=== PATIENT | female | born 1960 | race Caucasian/White ===

== ENCOUNTER 2016-11-08 14:49 | Emergency (ER) | payer OTHER ==
[2016-11-08 14:58] VITALS: BP 142/81
--- NOTE | 2016-11-08 15:18 | EDM.PDOC ---
ED HPI GENERAL MEDICAL PROBLEM - General Chief Complaint: Upper Extremity Injury/Pain Stated Complaint: LEFT ARM INJURY Time Seen by Provider: 11/08/16 15:10 Source of Information: Reports: Patient History Limitations: Reports: No Limitations - History of Present Illness INITIAL COMMENTS - FREE TEXT/NARRATIVE: 56-year-old female presents for evaluation injury to left arm. Patient reports that she was cleaning a shower at work. Reports that she slipped and fell. States that she attempted to grab a shower bar but the bar gave way. She states that her left arm went up and around her. She reports hearing a pop. She is having pain to the left proximal humerus. No numbness or tingling. No obvious deformity, open wounds or bruising. Patient is right handed. No head trauma. No syncope headaches, nausea or vomiting. Onset: Today Location: Reports: Upper Extremity, Left Left Upper Arm Pain Score (Numeric/FACES): 10 - Related Data Allergies Allergy/AdvReac Type Severity Reaction Status Date / Time latex Allergy Rash Verified 10/23/15 15:50 Penicillins Allergy Airway Verified 10/23/15 15:50 Tightness plastic Allergy Rash Uncoded 10/23/15 15:50 Past Medical History HEENT History: Reports: Impaired Vision Other HEENT History: wears eyeglasses to read. Cardiovascular History: Reports: Heart Murmur, Hypertension Other Cardiovascular History: states was on Atenolol short term for HTN, states has anxiety when going to clinics. Respiratory History: Reports: Asthma, Pneumonia, Recurrent Gastrointestinal History: Reports: GERD Musculoskeletal History: Reports: Back Pain, Chronic, Fracture Psychiatric History: Reports: Anxiety - Infectious Disease History Infectious Disease History: Reports: Shingles - Past Surgical History HEENT Surgical History: Reports: Tonsillectomy Social & Family History - Tobacco Use Smoking Status *Q: Former Smoker Years of Tobacco use: 10 Used Tobacco, but Quit: Yes Month Tobacco Last Used: 6 yr Second Hand Smoke Exposure: No - Caffeine Use Caffeine Use: Reports: Coffee - Alcohol Use Days Per Week of Alcohol Use: 3 Number of Drinks Per Day: 1 Total Drinks Per Week: 3 - Recreational Drug Use Recreational Drug Use: No Review of Systems - Review of Systems Review Of Systems: See Below GI/Abdominal: Denies: Nausea, Vomiting Musculoskeletal: Reports: Arm Pain (left) Skin: Denies: Bruising, Wound Neurological: Denies: Headache, Syncope ED EXAM, GENERAL - Physical Exam Exam: See Below Exam Limited By: No Limitations General Appearance: Alert, WD/WN, No Apparent Distress Respiratory/Chest: No Respiratory Distress Cardiovascular: Normal Peripheral Pulses, Regular Rate, Rhythm Extremities: Normal Inspection, Normal Capillary Refill, Limited Range of Motion (left shoudler and arm ROM testing deferred due to pain), Other ( tenderness to the left mid to proximal humerus; no obvious deformity; no pain to palpation of the left shoulder, AC joint, scapula, clavicle or elbow) Neurological: Alert, Oriented, Normal Cognition Psychiatric: Normal Affect, Normal Mood Skin Exam: Warm, Dry, Normal Color Course - Vital Signs Last Recorded V/S: Last Vital Signs Temp 36.3 C 11/08/16 14:57 Pulse 87 11/08/16 14:57 Resp 20 11/08/16 14:57 BP 142/81 H 11/08/16 14:57 Pulse Ox 94 L 11/08/16 14:57 - Radiology Interpretation Free Text/Narrative:: xray of the left humerus shows no acute fractures or dislocations. - Re-Assessments/Exams Free Text/Narrative Re-Assessment/Exam: 11/08/16 16:30 I reviewed the x-ray results with the patient. Given her mechanism of injury and hearing a pop I am concerned that she tore her rotator cuff. I will have her follow-up with orthopedics. Hopefully once her pain has subsided some a more thorough physical exam of the left shoulder can be performed. I did educate her that she may require an MRI for further evaluation. I will have follow-up with Dr. Disla she has seen him in the past. I will place her in a shoulder sling. Discharge instructions as documented. Departure - Departure Time of Disposition: 16:30 Disposition: Home, Self-Care 01 Condition: Fair Clinical Impression: Shoulder injury - Discharge Information Instructions: Shoulder Pain, [id number] Referrals: Fanny Garner PA-C [Primary Care Provider] - Bam Disla MD [Physician] - Forms: ED Department Discharge Additional Instructions: [id number] Tylenol or Motrin as needed for pain. Shoulder sling on at all times. Ice the shoulder for 5 times a day for 15-20 minutes. Follow-up with orthopedics within [address] Disla. Please call to schedule with Dr. Disla. Please return to the ER if your symptoms change or worsen.
--- NOTE | 2016-11-08 17:40 | CR ---
Left humerus: Two views of the left humerus were obtained. No fracture or other abnormality is seen. Impression: 1. No abnormality is identified on two-view left humerus study. Diagnostic code #1
== END 2016-11-08 16:40 | disposition home or self-care (01) ==
LOC: JD.ED 14:49
DX: S49.92XA Unspecified injury of left shoulder and upper arm, initial encounter (principal); I10 Essential (primary) hypertension; J45.909 Unspecified asthma, uncomplicated; K21.9 Gastro-esophageal reflux disease without esophagitis; F41.9 Anxiety disorder, unspecified; Z88.0 Allergy status to penicillin; Z91.040 Latex allergy status; Z91.048 Other nonmedicinal substance allergy status; Z87.891 Personal history of nicotine dependence; Z98.890 Other specified postprocedural states; Z87.01 Personal history of pneumonia (recurrent); W01.0XXA Fall on same level from slipping, tripping and stumbling without subsequent striking against object, initial encounter; Y99.0 Civilian activity done for income or pay
CPT/HCPCS: 73060-26-LT; 73060-LT; 99283

== ENCOUNTER 2018-04-29 08:14 | Emergency (ER) | payer OTHER ==
[2018-04-29 08:37] VITALS: BP 148/88
[2018-04-29] MEDS ORDERED: Acetaminophen 325 MG Tab PO ONE (08:47)
--- NOTE | 2018-04-29 09:43 | CR ---
Right shoulder: Three views of the right shoulder were obtained. Comparison: No previous shoulder study. Acromioclavicular and glenohumeral joints appear within normal limits. No fracture, dislocation or other bony abnormality is identified. Impression: 1. No abnormality is appreciated on right shoulder study. Diagnostic code #1
--- NOTE | 2018-04-29 09:43 | CR ---
Right knee: Four views of the right knee were obtained. Comparison: Prior right knee exam of 07/24/16. Very minimal joint effusion is seen. Medial and lateral joint compartments are maintained in height. No fracture or other bony abnormality is identified. Impression: 1. Minimal joint effusion. 2. Right knee study is otherwise unremarkable. No significant change is seen from previous study. Diagnostic code #2
--- NOTE | 2018-04-29 10:15 | EDM.PDOC ---
ED HPI GENERAL MEDICAL PROBLEM - General Chief Complaint: Lower Extremity Injury/Pain Stated Complaint: RT KNEE,ARM,SHOULDER INJURY Time Seen by Provider: 04/29/18 08:35 Source of Information: Reports: Patient, RN Notes Reviewed - History of Present Illness INITIAL COMMENTS - FREE TEXT/NARRATIVE: 57-year-old lady slipped on her deck last evening down on her right knee and then also suffering hyperflexion injury to the right knee. Injured her right shoulder. Morning she still has quite severe knee pain but also does have moderate shoulder pain worse with motion. Right Knee Pain Score (Numeric/FACES): 10 - Related Data Allergies Allergy/AdvReac Type Severity Reaction Status Date / Time latex Allergy Rash Verified 04/29/18 08:31 Penicillins Allergy Airway Verified 04/29/18 08:31 Tightness plastic Allergy Rash Uncoded 10/23/15 15:50 Home Meds: Home Meds Biotin 5,000 mcg PO DAILY 04/29/18 [History] Doxycycline [Vibramycin] 25 mg PO BID 04/29/18 [History] Magnesium Citrate 200 mg PO DAILY 04/29/18 [History] Past Medical History HEENT History: Reports: Impaired Vision Other HEENT History: wears eyeglasses to read. Cardiovascular History: Reports: Heart Murmur, Hypertension Other Cardiovascular History: states was on Atenolol short term for HTN, states has anxiety when going to clinics. Respiratory History: Reports: Asthma, Pneumonia, Recurrent Gastrointestinal History: Reports: GERD Musculoskeletal History: Reports: Back Pain, Chronic, Fracture Psychiatric History: Reports: Anxiety - Infectious Disease History Infectious Disease History: Reports: Shingles - Past Surgical History HEENT Surgical History: Reports: Tonsillectomy Social & Family History - Tobacco Use Smoking Status *Q: Former Smoker Used Tobacco, but Quit: Yes Month/Year Tobacco Last Used: 2010 - Caffeine Use Caffeine Use: Reports: Coffee - Recreational Drug Use Drug Use in Last 12 Months: No Review of Systems - Review of Systems Review Of Systems: See Below Eyes: Reports: No Symptoms Ears: Denies: Bloody Discharge Nose: Reports: No Symptoms Mouth/Throat: Reports: No Symptoms Respiratory: Denies: Shortness of Breath, Pleuritic Chest Pain Cardiovascular: Denies: Chest Pain GI/Abdominal: Denies: Abdominal Pain, Nausea, Vomiting Musculoskeletal: Reports: Shoulder Pain, Joint Pain (Knee pain) Neurological: Denies: Headache, Numbness, Tingling, Trouble Speaking, Weakness ED EXAM, GENERAL - Physical Exam Exam: See Below General Appearance: Alert, Moderate Distress Eye Exam: Bilateral Eye: PERRL Ears: Normal External Exam Nose: Normal Inspection Throat/Mouth: Normal Inspection Head: Atraumatic Neck: Supple, Non-Tender Respiratory/Chest: No Respiratory Distress, Lungs Clear, Normal Breath Sounds Cardiovascular: Regular Rate, Rhythm Extremities: Joint Swelling (There is mild swelling of the right knee, diffuse tenderness, there is pain with motion, joint is stable.), Other (There is tenderness of the anterior and lateral shoulder, no swelling or visible deformity) Neurological: Alert, Oriented, No Motor/Sensory Deficits Skin Exam: Warm, Dry, Normal Color Course - Vital Signs Last Recorded V/S: Last Vital Signs Temp 98.4 F 04/29/18 08:32 Pulse 71 04/29/18 08:32 Resp 13 04/29/18 08:32 BP 148/88 H 04/29/18 08:32 Pulse Ox 100 04/29/18 08:32 - Orders/Labs/Meds Meds: Medications Discontinued Medications Generic Name Dose Route Start Last Admin Trade Name Autumn PRN Reason Stop Dose Admin Acetaminophen 975 mg 04/29/18 08:47 04/29/18 08:55 Tylenol PO 04/29/18 08:48 975 mg NOW ONE Administration - Re-Assessments/Exams Free Text/Narrative Re-Assessment/Exam: 04/29/18 16:57 X-rays of shoulder and knee are negative for fracture 04/29/18 17:01. Treated with knee immobilizer, she does have crutches at home. Departure - Departure Time of Disposition: 10:15 Disposition: Home, Self-Care 01 Condition: Fair Clinical Impression: Fall Qualifiers: Encounter type: initial encounter Qualified Code(s): W19.XXXA - Unspecified fall, initial encounter Right knee sprain Qualifiers: Encounter type: initial encounter Involved ligament of knee: unspecified ligament Qualified Code(s): S83.91XA - Sprain of unspecified site of right knee , initial encounter Shoulder contusion Qualifiers: Encounter type: initial encounter Laterality: right Qualified Code(s): S40.011A - Contusion of right shoulder, initial encounter - Discharge Information Instructions: Fall Prevention in the Home, [id number], Knee Sprain, Adult Referrals: Fanny Garner PA-C [Primary Care Provider] - Forms: ED Department Discharge Additional Instructions: Knee immobilizer, ice packs and elevation, use crutches, try keep nonweightbearing as much as possible. Continue Aleve, take 2 tabs twice daily with food which will help for pain and inflammation. You may take Tylenol up to 3 times daily in addition for extra pain relief. Follow up with Fanny at the clinic in about 3 days for recheck, call for appointment. If symptoms not improving MRI may be indicated, physical therapy also would be helpful.
== END 2018-04-29 10:46 | disposition home or self-care (01) ==
LOC: JD.ED 08:14
DX: S83.91XA Sprain of unspecified site of right knee, initial encounter (principal); S40.011A Contusion of right shoulder, initial encounter; I10 Essential (primary) hypertension; Z87.01 Personal history of pneumonia (recurrent); Z98.890 Other specified postprocedural states; Z88.0 Allergy status to penicillin; Z91.040 Latex allergy status; Z87.891 Personal history of nicotine dependence; W00.0XXA Fall on same level due to ice and snow, initial encounter
CPT/HCPCS: 73030; 73564; 99283; A9270; 99282

== ENCOUNTER 2019-04-15 10:22 | Emergency (ER) | payer OTHER ==
[2019-04-15 10:45] VITALS: BP 144/90; PULSE 76
[2019-04-15] MEDS ORDERED: Alum Hydrox/Mag Hydrox/Simeth 30 ML, Lidocaine 2% 15 ML PO ONE ×2 (11:41)
--- NOTE | 2019-04-15 11:45 | EDM.PDOC ---
ED HPI GENERAL MEDICAL PROBLEM - General Chief Complaint: Abdominal Pain Stated Complaint: PAIN IN LEFT SIDE Time Seen by Provider: 04/15/19 11:26 Source of Information: Reports: Patient History Limitations: Reports: No Limitations - History of Present Illness INITIAL COMMENTS - FREE TEXT/NARRATIVE: Patient is a 58-year-old female who presents with complaints of left upper quadrant abdominal pain that started around 1:00 in the morning on Sunday. Patient states that she ate [place] food on Sunday evening and she feels that this may be contributing to her pain. She describes the pain as sharp. The pain is not present when she is holding still, however it is tender to palpation , with movement, or with deep breathing. She does have a history of fairly significant acid reflux, however she is not on a daily PPI. States that she uses Maalox as needed. She also has a history with recurrent constipation. States that a couple days ago she had a bowel movement which was "a couple andrey ", however she has taken Maalox in a couple occasions and did have a normal soft bowel movement today. This did not affect her pain. Patient has had an EGD done by Dr. Plascencia approximately 5 years ago which was normal. She does not take a daily stool softener. She denies any nausea, vomiting, or diarrhea associated with this pain. Left Upper Abdomen Pain Score (Numeric/FACES): 8 - Related Data Allergies Allergy/AdvReac Type Severity Reaction Status Date / Time latex Allergy Rash Verified 04/15/19 10:45 Penicillins Allergy Airway Verified 04/15/19 10:45 Tightness plastic Allergy Rash Uncoded 10/23/15 15:50 Home Meds: Home Meds Biotin 5,000 mcg PO DAILY 04/29/18 [History] Doxycycline [Vibramycin] 25 mg PO BID 04/29/18 [History] metroNIDAZOLE [Metronidazole] 04/15/19 [History] Past Medical History HEENT History: Reports: Impaired Vision Other HEENT History: wears eyeglasses to read. Cardiovascular History: Reports: Heart Murmur, Hypertension Other Cardiovascular History: states was on Atenolol short term for HTN, states has anxiety when going to clinics. Respiratory History: Reports: Asthma, Pneumonia, Recurrent Gastrointestinal History: Reports: GERD Musculoskeletal History: Reports: Back Pain, Chronic, Fracture Psychiatric History: Reports: Anxiety - Infectious Disease History Infectious Disease History: Reports: Shingles - Past Surgical History HEENT Surgical History: Reports: Tonsillectomy Social & Family History - Tobacco Use Smoking Status *Q: Former Smoker Used Tobacco, but Quit: Yes Month/Year Tobacco Last Used: 2010 - Caffeine Use Caffeine Use: Reports: Coffee, Tea - Recreational Drug Use Recreational Drug Use: No ED ROS GENERAL - Review of Systems Review Of Systems: Comprehensive ROS is negative, except as noted in HPI. ED EXAM, GI/ABD - Physical Exam Exam: See Below Exam Limited By: No Limitations General Appearance: Alert, WD/WN, No Apparent Distress Respiratory/Chest: No Respiratory Distress, Lungs Clear, Normal Breath Sounds, No Accessory Muscle Use, Chest Non-Tender Cardiovascular: Normal Peripheral Pulses, Regular Rate, Rhythm, No Edema, No Gallop, No JVD, No Murmur, No Rub GI/Abdominal Exam: Normal Bowel Sounds, Soft, No Organomegaly, No Distention, No Abnormal Bruit, No Mass, Pelvis Stable, Tender (Left upper quadrant tenderness) Extremities: Normal Inspection, Normal Range of Motion, Non-Tender, Normal Capillary Refill, No Pedal Edema Neurological: Alert, Oriented, CN II-XII Intact, Normal Cognition, Normal Gait, Normal Reflexes, No Motor/Sensory Deficits Psychiatric: Normal Affect, Normal Mood Skin Exam: Warm, Dry, Intact, Normal Color, No Rash Course - Vital Signs Last Recorded V/S: Last Vital Signs Temp 98.2 F 04/15/19 10:41 Pulse 76 04/15/19 10:41 Resp 18 04/15/19 10:41 BP 144/90 H 04/15/19 10:41 Pulse Ox 95 04/15/19 10:41 - Orders/Labs/Meds Labs: Laboratory Tests 04/15/19 04/15/19 04/15/19 Range/Units 11:55 11:55 12:34 WBC 6.04 (3.98-10.04) K/mm3 RBC 4.96 (3.98-5.22) M/mm3 Hgb 14.6 (11.2-15.7) gm/dl Hct 43.4 (34.1-44.9) % MCV 87.5 (79.4-94.8) fl MCH 29.4 (25.6-32.2) pg MCHC 33.6 (32.2-35.5) g/dl RDW Std Deviation 37.6 (36.4-46.3) fL Plt Count 329 (182-369) K/mm3 MPV 9.6 (9.4-12.3) fl Neut % (Auto) 56.8 (34.0-71.1) % Lymph % (Auto) 30.1 (19.3-51.7) % [place] % (Auto) 9.8 (4.7-12.5) % Eos % (Auto) 2.3 (0.7-5.8) Baso % (Auto) 0.8 (0.1-1.2) % Neut # (Auto) 3.43 (1.56-6.13) K/mm3 Lymph # (Auto) 1.82 (1.18-3.74) K/mm3 [place] # (Auto) 0.59 H (0.24-0.36) K/mm3 Eos # (Auto) 0.14 (0.04-0.36) K/mm3 Baso # (Auto) 0.05 (0.01-0.08) K/mm3 Sodium 139 (136-145) mEq/L Potassium 4.3 (3.5-5.1) mEq/L Chloride 103 (98-107) mEq/L Carbon Dioxide 28 (21-32) mEq/L Anion Gap 12.3 (5-15) BUN 17 (7-18) mg/dL Creatinine 0.8 (0.55-1.02) mg/dL Est Cr Clr Drug Dosing 57.84 mL/min Estimated GFR (MDRD) > 60 (>60) mL/min BUN/Creatinine Ratio 21.3 H (14-18) Glucose 100 (74-106) mg/dL Calcium 9.4 (8.5-10.1) mg/dL Total Bilirubin 0.6 (0.2-1.0) mg/dL AST 25 (15-37) U/L ALT 40 (14-59) U/L Alkaline Phosphatase 91 (46-116) U/L C-Reactive Protein 1.4 H* (<1.0) mg/dL Total Protein 7.5 (6.4-8.2) g/dl Albumin 3.6 (3.4-5.0) g/dl Globulin 3.9 gm/dL Albumin/Globulin Ratio 0.9 L (1-2) Lipase 123 (73-393) U/L Urine Color Light yellow (Yellow) Urine Appearance Clear (Clear) Urine pH 6.5 (5.0-8.0) Ur Specific [place] 1.020 (1.005-1.030) Urine Protein Negative (Negative) Urine Glucose (UA) Negative (Negative) Urine Ketones Negative (Negative) Urine Occult Blood Trace-lysed H (Negative) Urine Nitrite Negative (Negative) Urine Bilirubin Negative (Negative) Urine Urobilinogen 0.2 (0.2-1.0) Ur Leukocyte Esterase Negative (Negative) Urine RBC 0-5 (0-5) /hpf Urine WBC 0-5 (0-5) /hpf Ur Squamous Epith Cells 0-5 (0-5) /hpf Urine Bacteria Not seen (FEW) /hpf Urine Mucus Not seen (FEW) /hpf Meds: Medications Discontinued Medications Generic Name Dose Route Start Last Admin Trade Name Freq PRN Reason Stop Dose Admin Al Hydroxide/Mg Hydroxide 30 0 ml 04/15/19 11:41 04/15/19 12:31 ml/ Lidocaine HCl 15 ml PO 04/15/19 11:42 45 ml ONETIME ONE Administration Magnesium Citrate 296 ml 04/15/19 12:57 04/15/19 13:07 Citrate Of Magnesia PO 04/15/19 12:58 296 ml ONETIME ONE Administration - Re-Assessments/Exams Free Text/Narrative Re-Assessment/Exam: 04/15/19 12:55 Hematology was grossly unremarkable with the exception of a very mildly elevated CRP at 1.4. Urinalysis was negative for any infection. Abdomen x-ray does show a significant amount of stool throughout the rectal vault, descending colon, splenic flexure, and across the transverse colon. Discussed these findings with the patient. We will send her home with a bottle of magnesium citrate. Also recommended that she start taking a daily stool stool softener such as Colace. Discharge instructions as documented. Departure - Departure Time of Disposition: 12:56 Disposition: Home, Self-Care 01 Condition: Good Clinical Impression: Abdominal pain Qualifiers: Abdominal location: left upper quadrant Qualified Code(s): R10.12 - Left upper quadrant pain - Discharge Information *PRESCRIPTION DRUG MONITORING PROGRAM REVIEWED*: No *COPY OF PRESCRIPTION DRUG MONITORING REPORT IN PATIENT HANS: No Instructions: Abdominal Pain, Adult, Constipation, Adult, [id number] Referrals: Fanny Garner PA-C [Primary Care Provider] - Forms: ED Department Discharge Additional Instructions: You were seen in the emergency department today for left upper quadrant abdominal pain that started yesterday and worsened and today. Your work-up included blood work, urinalysis, as well as an x-ray of your abdomen. Your blood work and urinalysis were normal. X-ray of your abdomen did show a significant amount of stool in the left side of your colon which is likely the cause of the pain you are having. You have been sent home with a bottle of magnesium citrate. Drink this when you get home. This should produce a number of bowel movements some of which may be loose. Recommend that you begin taking a daily stool softener such as Colace. For time that you find that you have acute constipation, you may use [id number] magnesium citrate or MiraLAX as needed. If you should experience any worsening symptoms of concern, please do not hesitate to return to the emergency department. Sepsis Event Note - Evaluation Sepsis Screening Result: No Definite Risk - Focused Exam Date Exam was Performed: 04/16/19 Time Exam was Performed: 01:08
[2019-04-15] MEDS ORDERED: Magnesium Citrate Solution 296 ML Bottle PO ONE (12:57)
--- NOTE | 2019-04-15 13:32 | CR ---
Abdomen: Supine and upright views of the abdomen were obtained. Comparison: No previous study. Slight increased stool is seen throughout the colon. Slight degenerative change is scattered within the spine with mild scoliosis. No free air is seen. Calcifications are noted within the pelvis having the appearance of phleboliths. No discrete soft tissue abnormality is appreciated. Impression: 1. Findings as noted above. 2. Nothing acute is appreciated on two-view abdominal x-ray. Diagnostic code #2 This report was dictated in [place] Standard Time
== END 2019-04-15 13:15 | disposition home or self-care (01) ==
LOC: JD.ED 10:22
DX: R10.12 Left upper quadrant pain (principal); I10 Essential (primary) hypertension; J45.909 Unspecified asthma, uncomplicated; Z79.899 Other long term (current) drug therapy; Z87.891 Personal history of nicotine dependence; Z91.040 Latex allergy status; Z88.0 Allergy status to penicillin
CPT/HCPCS: 36415; 74019; 80053; 81001; 83690; 85025; 86140; 99284; A9270; 99283

== ENCOUNTER 2019-12-12 17:00 | Emergency (ER) | payer OTHER ==
[2019-12-12] MEDS ORDERED: Ondansetron 4 MG/2 ML SDV IVPUSH ONE (17:57)
[2019-12-12] MEDS ORDERED: Sodium Chloride 0.9% 1,000 ML IV SCH (18:00)
--- NOTE | 2019-12-12 18:07 | EDM.PDOC ---
ED HPI GENERAL MEDICAL PROBLEM - General Chief Complaint: Abdominal Pain Stated Complaint: LOWER ABD PAIN AND BACK PAIN Time Seen by Provider: 12/12/19 17:37 Source of Information: Reports: Patient, RN Notes Reviewed History Limitations: Reports: No Limitations - History of Present Illness INITIAL COMMENTS - FREE TEXT/NARRATIVE: Patient is a 59-year-old female who presents to the ED for the evaluation of her ongoing lower abdomen pain. She notes that she has been having issues with this for about the last week, she has been seen by 2 midlevel's and one doctor at the walk-in clinic, and has not had much done per her history. She states that she has a issue with constipation, but she has had some bowel movements over the last week, they have been very hard and small to her reports. She did note today that her urine seemed to be pink-tinged, and would like her urine tested, she states no one has done this, they have only done blood work and no imaging or other modalities. Patient notes that she recently lost her in October as well, and has had some depression about this, but she does not want to take anything for medication and states that she has tried talking to someone, but is not helped. Patient notes that the abdomen pain seems to worsen when she sits up straight, and has noted it is fairly constant. She is also noted a relative weight loss of roughly 20 pounds in the last few months as well. She has been using Mylanta for her constipation issues. She states she has had the chills but no fever, she denies any diarrhea, but is complaining of nausea but no vomiting. She is tried 1 enema, with no results. She does note that Dr. Rojas at the walk-in clinic put her on Linzess for her bowel issues, patient states she took 1 dose of this last night, and notes that it did not go well with her, so she does not want to take this anymore. Treatments OCCUPATIONAL MEDICINE SPECIALIST: Reports: Other (see below) Other Treatments OCCUPATIONAL MEDICINE SPECIALIST: none Left Back Pain Score (Numeric/FACES): 8 Bilateral Lower Abdomen Pain Score (Numeric/FACES): 8 - Related Data Allergies Allergy/AdvReac Type Severity Reaction Status Date / Time latex Allergy Severe Rash Verified 12/12/19 17:43 Penicillins Allergy Severe Airway Verified 12/12/19 17:43 Tightness plastic Allergy Severe Rash Uncoded 12/12/19 17:43 Home Meds: Home Meds Dicyclomine [Bentyl] 10 mg PO TID #21 cap 12/12/19 [Rx] Doxycycline [Vibramycin] 100 mg PO BID 7 Days #14 tab 12/12/19 [Rx] Past Medical History HEENT History: Reports: Impaired Vision Other HEENT History: wears eyeglasses to read. Cardiovascular History: Reports: Heart Murmur, Hypertension Other Cardiovascular History: states was on Atenolol short term for HTN, states has anxiety when going to clinics. Respiratory History: Reports: Asthma, Pneumonia, Recurrent Gastrointestinal History: Reports: GERD Musculoskeletal History: Reports: Back Pain, Chronic, Fracture Psychiatric History: Reports: Anxiety - Infectious Disease History Infectious Disease History: Reports: Shingles - Past Surgical History HEENT Surgical History: Reports: Tonsillectomy Social & Family History - Tobacco Use Tobacco Use Status *Q: Former Tobacco User Used Tobacco, but Quit: Yes Month/Year Tobacco Last Used: 2010 - Caffeine Use Caffeine Use: Reports: Coffee, Tea - Recreational Drug Use Recreational Drug Use: No ED ROS GENERAL - Review of Systems Review Of Systems: Comprehensive ROS is negative, except as noted in HPI. ED EXAM, GI/ABD - Physical Exam Exam: See Below Exam Limited By: No Limitations General Appearance: Alert, WD/WN, No Apparent Distress, Anxious (pt is mildly tearful when talking about her , but is consolable) Respiratory/Chest: No Respiratory Distress, Lungs Clear, Normal Breath Sounds, No Accessory Muscle Use, Chest Non-Tender Cardiovascular: Normal Peripheral Pulses, Regular Rate, Rhythm, No Murmur GI/Abdominal Exam: Normal Bowel Sounds, Soft, No Distention, No Mass, Tender (suprapubic tenderness) (Female) Exam: Deferred (pt denies vaginal bleeding/discharge other concerns) Extremities: Normal Inspection, Normal Capillary Refill Neurological: Alert, Oriented, Normal Cognition, No Motor/Sensory Deficits Psychiatric: Normal Affect, Normal Mood, Anxious (mildy, but consolable) Skin Exam: Warm, Dry, Intact, Normal Color, No Rash Course - Vital Signs Last Recorded V/S: Last Vital Signs Temp 98.7 F 12/12/19 17:48 Pulse 98 12/12/19 17:48 Resp 20 12/12/19 17:48 BP 159/104 H 12/12/19 17:48 Pulse Ox 95 12/12/19 17:48 - Orders/Labs/Meds Orders: Active Orders 24 hr Category Date Time Status Abdomen Pelvis w Cont [CT] Stat Exams 12/12/19 17:57 Ordered Sodium Chloride 0.9% [Normal Saline] 1,000 ml Med 12/12/19 18:00 Ordered IV ASDIRECTED Sodium Chloride 0.9% [Normal Saline] 100 ml Med 12/12/19 21:15 Active IV ASDIRECTED Sodium Chloride 0.9% [Saline Flush] Med 12/12/19 21:15 Active 10 ml FLUSH BOLUS Medication Orders Sodium Chloride (Normal Saline) 1,000 mls @ 999 mls/hr IV ASDIRECTED BAN Last Admin: 12/12/19 18:32 Dose: 999 mls/hr Documented by: RONIT Sodium Chloride (Normal Saline) 100 mls @ 60 mls/hr IV ASDIRECTED BAN Last Admin: 12/12/19 21:17 Dose: 60 mls/hr Documented by: OLGAIGIN Sodium Chloride (Saline Flush) 10 ml FLUSH BOLUS [facility] Last Admin: 12/12/19 21:17 Dose: 10 ml Documented by: ONEIGIN Labs: Laboratory Tests 12/12/19 12/12/19 12/12/19 Range/Units 18:18 18:20 18:20 WBC 3.92 L (3.98-10.04) K/mm3 RBC 4.57 (3.98-5.22) M/mm3 Hgb 13.5 (11.2-15.7) gm/dl Hct 40.4 (34.1-44.9) % MCV 88.4 (79.4-94.8) fl MCH 29.5 (25.6-32.2) pg MCHC 33.4 (32.2-35.5) g/dl RDW Std Deviation 37.8 (36.4-46.3) fL Plt Count 288 (182-369) K/mm3 MPV 9.5 (9.4-12.3) fl Neutrophils % (Manual) 52 (40-60) % Band Neutrophils % 0 (0-10) % Lymphocytes % (Manual) 32 (20-40) % Atypical Lymphs % 0 % Monocytes % (Manual) 16 H (2-10) % Eosinophils % (Manual) 0 L (0.7-5.8) % Basophils % (Manual) 0 L (0.1-1.2) Platelet Estimate Adequate RBC Morph Comment Normal Sodium 136 (136-145) mEq/L Potassium 4.4 (3.5-5.1) mEq/L Chloride 99 (98-107) mEq/L Carbon Dioxide 29 (21-32) mEq/L Anion Gap 12.4 (5-15) BUN 14 (7-18) mg/dL Creatinine 0.8 (0.55-1.02) mg/dL Est Cr Clr Drug Dosing 54.39 mL/min Estimated GFR (MDRD) > 60 (>60) mL/min BUN/Creatinine Ratio 17.5 (14-18) Glucose 104 (74-106) mg/dL Calcium 8.7 (8.5-10.1) mg/dL Total Bilirubin 0.4 (0.2-1.0) mg/dL AST 41 H (15-37) U/L ALT 49 (14-59) U/L Alkaline Phosphatase 91 (46-116) U/L Total Protein 6.9 (6.4-8.2) g/dl Albumin 3.3 L (3.4-5.0) g/dl Globulin 3.6 gm/dL Albumin/Globulin Ratio 0.9 L (1-2) Urine Color Yellow (Yellow) Urine Appearance Clear (Clear) Urine pH 6.0 (5.0-8.0) Ur Specific Shock > or = 1.030 (1.005-1.030) Urine Protein Negative (Negative) Urine Glucose (UA) Negative (Negative) Urine Ketones Negative (Negative) Urine Occult Blood Negative (Negative) Urine Nitrite Negative (Negative) Urine Bilirubin Negative (Negative) Urine Urobilinogen 0.2 (0.2-1.0) Ur Leukocyte Esterase Negative (Negative) Urine RBC 0-5 (0-5) /hpf Urine WBC Not seen (0-5) /hpf Ur Squamous Epith Cells 0-5 (0-5) /hpf Urine Bacteria Few (FEW) /hpf Urine Mucus Few (FEW) /hpf Meds: Medications Generic Name Dose Route Start Last Admin Trade Name Freq PRN Reason Stop Dose Admin Sodium Chloride 1,000 mls @ 999 mls/hr 12/12/19 18:00 12/12/19 18:32 Normal Saline IV 999 mls/hr ASDIRECTED BAN Administration Sodium Chloride 100 mls @ 60 mls/hr 12/12/19 21:15 12/12/19 21:17 Normal Saline IV 60 mls/hr ASDIRECTED BAN Administration Sodium Chloride 10 ml 12/12/19 21:15 12/12/19 21:17 Saline Flush FLUSH 10 ml BOLUS BAN Administration Discontinued Medications Generic Name Dose Route Start Last Admin Trade Name Autumn PRN Reason Stop Dose Admin Iopamidol 100 ml 12/12/19 21:14 12/12/19 21:17 Isovue-300 (61%) IVPUSH 12/12/19 21:15 100 ml ONETIME ONE Administration Ondansetron HCl 4 mg 12/12/19 17:57 12/12/19 18:33 Zofran IVPUSH 12/12/19 17:58 Not Given ONETIME ONE - Re-Assessments/Exams Free Text/Narrative Re-Assessment/Exam: 12/12/19 18:06 Patient presents to the ED for ongoing abdomen issues. For tonight's purposes we will get basic labs to include a urinalysis, abdomen pelvis CT for further evaluation of her ongoing issues, as this has been going on a week and she has not gotten much for answers. 12/12/19 19:27 Patient's labs are unremarkable, still awaiting CT results at this time. Urinalysis also demonstrates no sign of an acute infection. 12/12/19 21:[address] abdomen [address] demonstrates no obvious acute intra-abdominal abnormalities. There was a right lower lobe consolidation appreciated, which the radiologist is calling a pneumonia at this time. I do believe her ongoing abdomen issues could be due to her chronic constipation/possible IBS. I will have her continue to follow with her regular care provider regarding this. In the meantime we will get her started on doxycycline 100 mg twice daily x7 days for the right lower lobe pneumonia. I will try to strongly suggest that the patient follow-up with someone to talk about her feelings regarding her 's recent passing, as it does not appear that she is coping very well with this. 12/12/19 21:50 I did assess the patient again at bedside, states she is feeling generally unwell and almost worse than when she came in here, but is wanting to go home. I will start her on doxycycline for the right lower lobe pneumonia, along with Bentyl for abdomen pain, as I do believe she is suffering more from an IBS type picture regarding cyclic constipation/diarrhea. Departure - Departure Time of Disposition: 21:51 Disposition: Home, Self-Care 01 Condition: Good Clinical Impression: Pneumonia Qualifiers: Pneumonia type: due to unspecified organism Laterality: right Lung location: lower lobe of lung Qualified Code(s): J18.9 - Pneumonia, unspecified organism Abdominal pain Qualifiers: Abdominal location: lower abdomen, unspecified Qualified Code(s): R10.30 - Lower abdominal pain, unspecified - Discharge Information *PRESCRIPTION DRUG MONITORING PROGRAM REVIEWED*: No *COPY OF PRESCRIPTION DRUG MONITORING REPORT IN PATIENT HANS: No Instructions: Abdominal Pain, Adult, [id number], Community-Acquired Pneumonia, Adult, [id number] Referrals: Fanny Garner PA-C [Primary Care Provider] - Forms: ED Department Discharge Additional Instructions: You were evaluated in the ER today for your ongoing abdomen pain. You had a thorough work-up in this ER to include lab work, and an abdomen pelvis CT. Although the CT demonstrated no acute intra-abdominal abnormalities, it did identify a pneumonia within your right lower lung. You have been started on doxycycline 100 mg twice daily for the next 7 days for this pneumonia. Antibiotics can take up to 48 hours to start working, if you do not feel better in 3 days time I recommend that you follow-up with another care provider for change in antibiotics, or reevaluation. Regarding your abdomen pain, it is highly likely that you have some form of irritable bowel syndrome, that cycles between constipation and diarrhea. Although Linzess might not be the appropriate medication for you, there may be other options to control your symptoms. For tonight's purposes we gave you a dose of dicyclomine to help with the abdomen pain. Dosing will be 1 tab 3 times a day for further abdomen pain. Medications has been sent electronically to the [facility] per your request, they are open tomorrow from 9 AM to 12 PM. You will need to go there during this time to obtain your medications and take as prescribed. Please follow-up with your regular care provider, Fanny Garner for a referral to gastroenterology regarding the IBS symptoms. I also strongly recommend that you talk with someone regarding your 's recent passing, as this does seem to be affecting your health and wellbeing. [facility] services would be able to provide you with counseling services when you are ready; please call their office at [phone]. Their crisis line can be reached at [phone]. Please return to the ER at any time if your symptoms should change or worsen. Sepsis Event Note (ED) - Evaluation Sepsis Screening Result: No Definite Risk - Focused Exam Vital Signs: Vital Signs Temp Pulse Resp BP Pulse Ox 12/12/19 17:48 98.7 F 98 20 159/104 H 95 - My Orders Last 24 Hours: My Active Orders 12/12/19 17:57 Abdomen Pelvis w Cont [CT] Stat 12/12/19 18:00 Sodium Chloride 0.9% [Normal Saline] 1,000 ml IV ASDIRECTED 12/12/19 21:15 Sodium Chloride 0.9% [Normal Saline] 100 ml IV ASDIRECTED Sodium Chloride 0.9% [Saline Flush] 10 ml FLUSH BOLUS - Assessment/Plan Last 24 Hours: My Active Orders 12/12/19 17:57 Abdomen Pelvis w Cont [CT] Stat 12/12/19 18:00 Sodium Chloride 0.9% [Normal Saline] 1,000 ml IV ASDIRECTED 12/12/19 21:15 Sodium Chloride 0.9% [Normal Saline] 100 ml IV ASDIRECTED Sodium Chloride 0.9% [Saline Flush] 10 ml FLUSH BOLUS
[2019-12-12] MEDS ORDERED: Iopamidol 612 MG/ML 100 ML Bottle IVPUSH ONE (21:14)
[2019-12-12] MEDS ORDERED: Sodium Chloride 0.9% 100 ML IV SCH (21:15)
[2019-12-12] MEDS ORDERED: Sodium Chloride 0.9% 10 ML Syringe FLUSH SCH (21:15)
[2019-12-12] MEDS ORDERED: Dicyclomine 10 MG Cap PO ONE (21:52)
[2019-12-12] MEDS ORDERED: Doxycycline 100 MG Cap PO ONE (21:52)
[2019-12-12 22:32] VITALS: BP 147/87; PULSE 86
--- NOTE | 2019-12-15 10:34 | CT ---
"PROCEDURE INFORMATION: Exam: CT Abdomen And Pelvis With Contrast Exam date and time: 12/12/2019 8:40 PM Age: 59 years old Clinical indication: Generalized; Patient HX: Lower abdominal pain with more pain to the rlq and flank onset 7 days ago TECHNIQUE: Imaging protocol: Computed tomography of the abdomen and pelvis with intravenous contrast. Contrast material: ISOVUE 300; Contrast volume: 96 ml; Contrast route: INTRAVENOUS (IV); Other contrast: Oral, gastrografin, 45; COMPARISON: No relevant prior studies available. FINDINGS: Lungs: Consolidation in the right lower lobe. Liver: Normal. No mass. Gallbladder and bile ducts: The gallbladder is markedly contracted. Pancreas: Normal. No ductal dilation. Spleen: Normal. No splenomegaly. Adrenal glands: Normal. No mass. Kidneys and ureters: Normal. No hydronephrosis. Stomach and bowel: Unremarkable. No obstruction. No mucosal thickening. Appendix: No evidence of appendicitis. Intraperitoneal space: Unremarkable. No free air. No significant fluid collection. Vasculature: Moderate atherosclerotic changes of the abdominal aorta. Moderate plaque at the origin of the SMA Lymph nodes: Unremarkable. No enlarged lymph nodes. Urinary bladder: Unremarkable as visualized. Reproductive: Unremarkable as visualized. Bones/joints: Unremarkable. No acute fracture. KRISTA BLAIRA | Final Radiology Report CONFIDENTIALITY STATEMENT This report is intended only for use by the referring physician, and only in accordance with law. If you received this in error, call [phone]. Page 2 of 2 Soft tissues: Tiny umbilical hernia containing fat. IMPRESSION: 1. Markedly contracted gallbladder. 2. Consolidation in the right lower lobe suggests right lower lobe pneumonia. 3. No other evidence for acute process within the abdomen/pelvis. Thank you for allowing us to participate in the care of your patient. Dictated and Authenticated by: Adarsh Navarrete MD 12/12/2019 10:32 PM Central Time ([place] & [place]) [facility]"
== END 2019-12-12 22:15 | disposition home or self-care (01) ==
LOC: JD.ED 17:00 → SUPCPDRO 17:00 → JD.ED 22:15
DX: R10.32 Left lower quadrant pain (principal); R10.31 Right lower quadrant pain; J18.9 Pneumonia, unspecified organism; I10 Essential (primary) hypertension; J45.909 Unspecified asthma, uncomplicated; Z91.040 Latex allergy status; Z88.0 Allergy status to penicillin; Z91.048 Other nonmedicinal substance allergy status; Z87.891 Personal history of nicotine dependence
CPT/HCPCS: 36415; 74177; 80053; 81001; 85007; 85027; 99284; A9270; J7030; Q9967